=== PATIENT | male | born 1965 | race Caucasian/White ===

== ENCOUNTER 2017-01-14 21:51 | Emergency (ER) | payer MEDICAID, SELFPAY ==
[~2017-01-14] VITALS: Ht 177.8 cm; Wt 90.8 kg
[~2017-01-14 21:51] MED LIST: AMOX-291 PO; ATOR20TA9 PO; CARV6.252 PO; CLAR500T3 PO; DOCU-30 PO; LEVO750T26 PO; LISI5TAB7 PO; MULT-750 PO; PANT40TA5 PO; POLY17PO5 PO
[2017-01-14 23:34] VITALS: BP 122/70
== END 2017-01-15 00:34 ==
LOC: ED 23:41
DX: K64.4 Residual hemorrhoidal skin tags (principal); I10 Essential (primary) hypertension; E78.5 Hyperlipidemia, unspecified
CPT/HCPCS: 99283